=== PATIENT | female | born 2000 | race Caucasian/White ===

== ENCOUNTER 2018-05-16 11:43 | Emergency (ER) | payer BC ==
[2018-05-16 12:23] VITALS: BP 121/69
--- NOTE | 2018-05-16 12:36 | UC ---
Throat Pain/Nasal Jonas HPI - HPI Summary HPI Summary: 18 yo female presents with a sore throat for the last 3 days. Had a fever yesterday and this morning. Says that she has a history of strep. Has been taking ibuprofen for her fever and discomfort with good relief. Denies cough, SOB, n/v, or rash. - History of Current Complaint Chief Complaint: UCRespiratory Stated Complaint: THROAT COMPLAINT Hx Obtained From: Patient Hx Last Menstrual Period: 04/25/18 Onset/Duration: Gradual Onset Severity: Moderate Pain Intensity: 4 Pain Scale Used: 0-10 Numeric - Allergies/Home Medications Allergies/Adverse Reactions: Allergies Allergy/AdvReac Type Severity Reaction Status Date / Time No Known Allergies Allergy Verified 05/16/18 12:18 PMH/Surg Hx/FS Hx/Imm Hx - Additional Past Medical History Additional PMH: None - Surgical History Surgical History: None - Family History Known Family History: Positive: None - Social History Occupation: Student Lives: Dormitory/Roommates Alcohol Use: None Substance Use Type: None Smoking Status (MU): Never Smoked Tobacco Review of Systems Constitutional: Fever Skin: Negative Eyes: Negative ENT: Sore Throat Respiratory: Negative Cardiovascular: Negative Gastrointestinal: Negative Neurovascular: Negative Neurological: Negative Psychological: Negative All Other Systems Reviewed And Are Negative: Yes Physical Exam - Summary Physical Exam Summary: GENERAL: NAD. WDWN. No pain distress. SKIN: No rashes, sores, lesions, or open wounds. HEENT: Head: AT/NC Eyes: Conjunctiva clear without inflammation or discharge. Ears: Hearing grossly normal. TMs intact, no bulging, erythema, or edema. Nose: Nasal mucosa pink and moist. NTTP maxillary and frontal sinus. Throat: Posterior oropharynx mdoerate erythema and 2+ tonsillar enlargement. No exudates. Uvula midline. No hoarse voice or muffled voice. NECK: Supple. Mild tonsillar LAD with TTP CHEST: CTAB. No r/r/w. No accessory muscle use. Breathing comfortably and in no distress. CV: RRR. Without m/r/g. Pulses intact. Cap refill <2seconds NEURO: Alert. PSYCH: Age appropriate behavior. Triage Information Reviewed: Yes Vital Signs: Initial Vital Signs Temp 98 F 05/16/18 12:19 Pulse 84 05/16/18 12:19 Resp 14 05/16/18 12:19 BP 121/69 05/16/18 12:19 Pulse Ox 100 05/16/18 12:19 Laboratory Tests 05/16/18 12:40 Group A Strep Rapid Negative Vital Signs Reviewed: Yes Throat Pain/Nasal Course/Dx - Course Course Of Treatment: Pharyngitis - Differential Dx/Diagnosis Provider Diagnoses: Pharyngitis Discharge - Sign-Out/Discharge Documenting (check all that apply): Patient Departure All imaging exams completed and their final reports reviewed: No Studies - Discharge Plan Condition: Stable Disposition: HOME Prescriptions: Amoxicillin PO (*) [Amoxicillin 500 MG CAP*] 500 mg PO Q12H #20 cap Patient Education Materials: Pharyngitis (ED) Referrals: No Primary Care Phys,NOPCP [Primary Care Provider] - Additional Instructions: If you develop a fever, shortness of breath, chest pain, new or worsening symptoms - please call your PCP or go to the ED. - Billing Disposition and Condition Condition: STABLE Disposition: Home
== END 2018-05-16 13:03 | disposition home or self-care (01) ==
LOC: UCCORT 11:43
DX: J02.9 Acute pharyngitis, unspecified (principal)
CPT/HCPCS: 87651; 99202; G0463

== ENCOUNTER 2018-06-28 13:38 | Emergency (ER) | payer BC ==
[2018-06-28 14:11] VITALS: BP 134/71
[2018-06-28] MEDS ORDERED: Ibuprofen TAB* 600 MG PO ONE (14:17)
[2018-06-28] MEDS ORDERED: Dexamethasone IV* 4 MG/ML 1 ML (4 MG) IM ONE (14:18)
--- NOTE | 2018-06-28 14:34 | UC ---
Throat Pain/Nasal Jonas HPI - HPI Summary HPI Summary: 18 yo F c/o sore throat for several days. Also has muffled voice and increased pain w swallowing. No cough. unsure of fever. Treated for strep pharyngitis in Sep with amoxacillin. patient reports roughly 5 Strep infections per year in past. currently not on any medications. family hx noncontributory - History of Current Complaint Chief Complaint: UCRespiratory Stated Complaint: SORE THROAT - RE CHECK Time Seen by Provider: 06/28/18 14:13 Hx Last Menstrual Period: 06/23/18 Pain Intensity: 7 - Allergies/Home Medications Allergies/Adverse Reactions: Allergies Allergy/AdvReac Type Severity Reaction Status Date / Time No Known Allergies Allergy Verified 06/28/18 14:07 PMH/Surg Hx/FS Hx/Imm Hx Previously Healthy: Yes - Surgical History Surgical History: None - Family History Known Family History: Positive: None - Social History Alcohol Use: None Substance Use Type: None Smoking Status (MU): Never Smoked Tobacco Review of Systems ENT: Sore Throat Respiratory: Negative Gastrointestinal: Negative Is Patient Immunocompromised?: No All Other Systems Reviewed And Are Negative: Yes Physical Exam Triage Information Reviewed: Yes Appearance: Well-Appearing, No Pain Distress, Well-Nourished Vital Signs: Initial Vital Signs Temp 97.7 F 06/28/18 14:03 Pulse 94 06/28/18 14:03 Resp 16 06/28/18 14:03 BP 134/71 06/28/18 14:03 Pulse Ox 100 06/28/18 14:03 Vital Signs Reviewed: Yes Eyes: Positive: Conjunctiva Clear ENT: Positive: Pharyngeal erythema, Tonsillar swelling, Tonsillar exudate, Hoarse voice, Uvula midline, Other - +palatal petechiae. Negative: Trismus Neck: Positive: Tenderness @ Respiratory: Positive: No respiratory distress, No accessory muscle use Skin Exam: Normal Throat Pain/Nasal Course/Dx - Course Course Of Treatment: given ibuprofen and dexamethasone - Differential Dx/Diagnosis Differential Diagnosis/HQI/PQRI: Laryngitis, Mononucleosis, Pharyngitis, Tonsillitis, URI Provider Diagnoses: strep pharyngitis Discharge - Sign-Out/Discharge Documenting (check all that apply): Patient Departure All imaging exams completed and their final reports reviewed: No Studies - Discharge Plan Condition: Stable Disposition: HOME Patient Education Materials: Strep Throat (ED) Referrals: No Primary Care Phys,NOPCP [Primary Care Provider] - - Billing Disposition and Condition Condition: STABLE Disposition: Home
== END 2018-06-28 14:57 | disposition home or self-care (01) ==
LOC: UCCORT 13:38
DX: J02.0 Streptococcal pharyngitis (principal)
CPT/HCPCS: 87651; 96372; 99212; A9270-GY; G0463; J1100

== ENCOUNTER 2019-06-10 17:00 | Emergency (ER) | payer BC ==
[2019-06-10 17:15] VITALS: BP 129/80
--- NOTE | 2019-06-10 17:24 | UC ---
Hand/Wrist HPI - HPI Summary HPI Summary: 19-year-old female who was doing pushups on Tuesday, 2 days ago when she developed some pain in her right wrist. She continued to do the sit ups and then has continued pain since then. - History Of Current Complaint Chief Complaint: UCUpperExtremity Stated Complaint: RT WRIST INJURY Time Seen by Provider: 06/10/19 17:08 Hx Obtained From: Patient Hx Last Menstrual Period: 05/18/19 ?: No Onset/Duration: Gradual Onset Severity Initially: Mild Severity Currently: Mild Pain Intensity: 0 Character Of Pain: Dull, Aching Aggravating Factor(s): Flexion Alleviating Factor(s): Rest Associated Signs And Symptoms: Positive: Negative - Allergies/Home Medications Allergies/Adverse Reactions: Allergies Allergy/AdvReac Type Severity Reaction Status Date / Time No Known Allergies Allergy Verified 06/10/19 17:10 Home Medications: Home Medications NK [No Home Medications Reported] 06/10/19 [History Confirmed 06/10/19] PMH/Surg Hx/FS Hx/Imm Hx Previously Healthy: Yes - Surgical History Surgical History: None - Family History Known Family History: Positive: None - Social History Occupation: Student Lives: Dormitory/Roommates Alcohol Use: Occasionally Substance Use Type: None Smoking Status (MU): Never Smoked Tobacco Review of Systems All Other Systems Reviewed And Are Negative: Yes Musculoskeletal: Positive: Other: - Pain mostly with upward flexion of the right wrist. Denies any numbness or tingling. Is Patient Immunocompromised?: No Physical Exam Triage Information Reviewed: Yes Appearance: Well-Appearing, No Pain Distress, Well-Nourished Vital Signs: Initial Vital Signs Temp 99.7 F 06/10/19 17:11 Pulse 80 06/10/19 17:11 Resp 18 06/10/19 17:11 BP 129/80 06/10/19 17:11 Pulse Ox 100 06/10/19 17:11 Vital Signs Reviewed: Yes Musculoskeletal Exam: Normal Musculoskeletal: Positive: Strength Intact, ROM Intact, No Edema, Other: - Good peripheral pulses neuro sensation capillary refill, full range of motion. I am unable to elicit any pain response on palpation. She has good finger strength to flexion extension against resistance. Navicular is nontender. Good wrist and elbow stability. Neurological: Positive: Alert, Muscle Tone Normal Psychological Exam: Normal Skin Exam: Normal Hand/Wrist Course/Dx - Course Course Of Treatment: Right wrist x-ray:ndication: Right wrist pain 3 views of the wrist demonstrates no fracture. No other bone or joint abnormality is identified. IMPRESSION: NO FRACTURE OF THE WRIST IS NOTED. A cock-up splint was applied. The patient may take Motrin for pain and follow- up with the orthopedist if continued pain after one week. She is to avoid movements that cause pain. - Differential Dx/Diagnosis Provider Diagnosis: Right wrist sprain Discharge ED - Sign-Out/Discharge Documenting (check all that apply): Patient Departure All imaging exams completed and their final reports reviewed: Yes - Discharge Plan Condition: Good Disposition: HOME Patient Education Materials: Wrist Sprain (ED) Referrals: No Primary Care Phys,NOPCP [Primary Care Provider] - Laureano Landis MD [Medical Doctor] - Additional Instructions: May take Motrin every 8 hours for pain. Use the wrist splint for comfort. Follow-up with the orthopedist in 1 week if you continue to have pain. - Billing Disposition and Condition Condition: GOOD Disposition: Home
== END 2019-06-10 18:04 | disposition home or self-care (01) ==
LOC: UCCORT 17:00
DX: S63.501A Unspecified sprain of right wrist, initial encounter (principal); X50.9XXA Other and unspecified overexertion or strenuous movements or postures, initial encounter; Y93.B2 Activity, push-ups, pull-ups, sit-ups; Y92.9 Unspecified place or not applicable
CPT/HCPCS: 99211; G0463